=== PATIENT | female | born 1945 | race Caucasian/White ===

== ENCOUNTER → 2017-08-14 | Outpatient (CLI) | payer MEDICARE | END | disposition home or self-care (01) | LOC: PCVCIMAG 09:01 | DX: I10 Essential (primary) hypertension (principal); I48.0 Paroxysmal atrial fibrillation; J45.909 Unspecified asthma, uncomplicated; E78.00 Pure hypercholesterolemia, unspecified; R00.2 Palpitations; Z82.49 Family history of ischemic heart disease and other diseases of the circulatory system; Z79.899 Other long term (current) drug therapy; Z79.84 Long term (current) use of oral hypoglycemic drugs; Z88.0 Allergy status to penicillin | CPT/HCPCS: 76770; 80061; 93975 ==

== ENCOUNTER → 2017-08-27 | Outpatient (CLI) | payer MEDICARE | END | disposition home or self-care (01) | LOC: PCVCIMAG 13:17 | DX: I48.0 Paroxysmal atrial fibrillation (principal); R00.2 Palpitations; I10 Essential (primary) hypertension; R06.00 Dyspnea, unspecified | CPT/HCPCS: 93306 ==

== ENCOUNTER → 2018-06-03 | Outpatient (CLI) | payer MEDICARE ==
--- NOTE | 2018-06-03 13:58 | PCVCIMAG ---
APPROVED REPORT Study performed: 06/03/2018 12:38:50 EXAM: Comprehensive 2D, Doppler, and color-flow Echocardiogram Patient Location: Echo lab Status: routine BSA: 2.08 HR: 68 bpmBP: 134/78 mmHg Rhythm: NSR Other Information Study Quality: Adequate Risk Factors: Cardiac Risk Factors: HTN, DM Indications parox a fib, obesity 2D Dimensions IVSd: 9.91 (7-11mm) LVDd: 52.31 mm PWd: 10.20 (7-11mm) LVDs: 35.37 (25-40mm) Left Atrium: 39.48 (27-40mm) Aortic Root: 34.58 mm LV Single Plane 4CH: 51.98 % LV Single Plane 2CH: 61.31 % Biplane EF: 56.3 % Volumes Left Atrial Volume (Systole) Single Plane 4CH: 69.31 mLSingle Plane 2CH: 77.71 mL LA ESV Index: 38.00 mL/m2 Aortic Valve AoV Peak Roc.: 2.12 m/s AO Peak Gr.: 18.57 mmHgLVOT Max P.29 mmHg LVOT Max V: 1.15 m/s Mitral Valve MV Peak Gr.: 11.10 mmHg MV Mean Gr.: 2.78 mmHgE/A Ratio: 1.6 MV Decel. Time: 302.88 ms MV E Max Orc.: 1.55 m/s MV A Roc.: 0.98 m/s MV Max Roc.: 1.67 m/s MV VTI: 527.92 mm MV PHT: 87.84 ms MVA (PHT): 2.23 cm2 IVRT: 89.97 ms Pulmonary Valve PV Peak Roc.: 1.17 m/sPV Peak Gr.: 5.50 mmHg Pulmonary Vein P Vein S: 0.52 m/sP Vein A: 0.29 m/s P Vein D: 0.63 m/sP Vein A Dur.: 152.2 msec P Vein S/D Ratio: 0.83 Tricuspid Valve TR Peak Roc.: 2.20 m/s TR Peak Gr.: 19.34 mmHg TV Vmax: 0.52 m/s Left Ventricle The left ventricle is normal size. There is normal LV segmental wall motion. There is normal left ventricular wall thickness. Left ventricular systolic function is normal. The left ventricular ejection fraction is within the normal range. LVEF is 50-55%. Grade II - pseudonormal filling dynamics. Right Ventricle The right ventricle is normal size. The right ventricular systolic function is normal. Atria Left atrium is mildly dilated. The right atrium size is normal. Aortic Valve Mild aortic valve sclerosis. No aortic regurgitation is present. There is no aortic valvular stenosis. Mitral Valve The mitral valve is normal in structure. There is no mitral valve regurgitation noted. No evidence of mitral valve stenosis. Tricuspid Valve The tricuspid valve is normal in structure. Trace tricuspid regurgitation with PAP of 26 mmHg. Pulmonic Valve The pulmonary valve is normal in structure. There is trace pulmonic valvular regurgitation. Great Vessels The aortic root is normal in size. IVC is normal in size and collapses >50% with inspiration. Pericardium There is no pericardial effusion. There is no pleural effusion. <Conclusion> The left ventricle is normal size. LVEF is 50-55%. Grade II - pseudonormal filling dynamics. The right ventricle is normal size. Left atrium is mildly dilated. Mild aortic valve sclerosis. There is no mitral valve regurgitation noted. Trace tricuspid regurgitation with PAP of 26 mmHg. The aortic root is normal in size. There is no pericardial effusion.
== END | disposition home or self-care (01) ==
LOC: PCVCIMAG 13:48
PROVIDERS: ATTEND Internal Medicine Cardiovascular Disease
DX: I35.8 Other nonrheumatic aortic valve disorders (principal); I48.0 Paroxysmal atrial fibrillation; I10 Essential (primary) hypertension; G47.30 Sleep apnea, unspecified; K21.9 Gastro-esophageal reflux disease without esophagitis; E78.5 Hyperlipidemia, unspecified; J45.909 Unspecified asthma, uncomplicated; E66.01 Morbid (severe) obesity due to excess calories; Z79.899 Other long term (current) drug therapy
CPT/HCPCS: 93005; 93306; G0463

== ENCOUNTER → 2019-02-04 | Outpatient (CLI) | payer MEDICARE | END | disposition home or self-care (01) | LOC: PCVCCLINIC 13:00 | PROVIDERS: ATTEND Internal Medicine Cardiovascular Disease | DX: I48.0 Paroxysmal atrial fibrillation (principal); E78.00 Pure hypercholesterolemia, unspecified; I10 Essential (primary) hypertension; I35.8 Other nonrheumatic aortic valve disorders; E11.9 Type 2 diabetes mellitus without complications; D68.59 Other primary thrombophilia; J45.909 Unspecified asthma, uncomplicated; I48.91 Unspecified atrial fibrillation; E78.5 Hyperlipidemia, unspecified; E66.01 Morbid (severe) obesity due to excess calories; Z79.899 Other long term (current) drug therapy; Z88.0 Allergy status to penicillin | CPT/HCPCS: 36415; 80061; 93005; G0463 ==